=== PATIENT | female | born 1970 | race Caucasian/White ===

== ENCOUNTER 2025-03-08 10:25 | Outpatient (RCR) | payer OTHER, SELFPAY ==
[2025-03-08 10:45] VITALS: BP 109/89
[2025-03-08] MEDS: RECLAST 100 IV (10:58)
== END 2025-03-09 10:27 | disposition home or self-care (01) ==
LOC: OID 10:25
PROVIDERS: ATTENDING PHYSICIAN Nurse Practitioner Family; FAMILY PHYSICIAN Internal Medicine
DX: M81.0 Age-related osteoporosis without current pathological fracture (principal)
CPT/HCPCS: 96365; J3489